=== PATIENT | male | born 1965 | race Caucasian/White ===

== ENCOUNTER 2017-10-18 13:55 | Emergency (ER) | payer BC ==
[2017-10-18 14:05] VITALS: RESP 16; TEMP 98.6
[2017-10-18] MEDS ORDERED: SODIUM CHLORIDE 0.9% 1000ML 1,000 ML IV SCH (14:15)
[2017-10-18 14:19] LABS: BASOPHILS % (AUTO) 2 % (0-3); EOSINOPHILS % (AUTO) 2 % (0-9); HEMATOCRIT 46 % (39-53); MEAN CORPUSCULAR HGB CONC 34.6 gm/dl (32.0-36.0); MEAN CORPUSCULAR VOLUME 87 fL (80-100); NEUTROPHILS % (AUTO) 50.6 % (37-80)
[2017-10-18 14:40] LABS: ALBUMIN 2.9 gm/dl (3.4-5.0); CALCIUM 8.4 mg/dl (8.5-10.1); MAGNESIUM 1.8 mg/dl (1.8-2.4); POTASSIUM 3.2 mMol/L (3.5-5.1)
[2017-10-18] MEDS ORDERED: POTASSIUM CHLORIDE 10 MEQ TER PO ONE (14:54)
[2017-10-18] MEDS ORDERED: POTASSIUM CHLORIDE 10 MEQ TER ONE (15:08)
[2017-10-18 16:50] VITALS: BP 135/79; PULSE 75; O2SAT 100
== END 2017-10-18 16:37 | disposition home or self-care (01) ==
LOC: ED 13:55
DX: R53.1 Weakness (principal); E87.6 Hypokalemia; K52.9 Noninfective gastroenteritis and colitis, unspecified; Z85.038 Personal history of other malignant neoplasm of large intestine
CPT/HCPCS: 71010; 80053; 83735; 84100; 85025; 87040; 87804; 99284

== ENCOUNTER 2017-10-19 16:13 | Emergency (ER) | payer BC ==
[2017-10-19 16:37] VITALS: RESP 16
[2017-10-19] MEDS ORDERED: SODIUM CHLORIDE 0.9% 1000ML 1,000 ML IV SCH (17:30)
[2017-10-19 17:57] LABS: HEMATOCRIT 48 % (39-53); MEAN CORPUSCULAR HGB CONC 34.4 gm/dl (32.0-36.0); MEAN CORPUSCULAR VOLUME 88 fL (80-100)
[2017-10-19 18:03] LABS: ALBUMIN 2.7 gm/dl (3.4-5.0); CALCIUM 8.4 mg/dl (8.5-10.1); THYROID STIMULATING HORMONE 0.894 uIU/ml (0.358-3.740)
[2017-10-19 18:23] LABS: BASOPHILS % (MANUAL) 0 % (0-3); EOSINOPHILS % (MANUAL) 0 % (0-9); LYMPHOCYTES % (MANUAL) 22 % (10-50); NORMAL RBCS PRESENT
[2017-10-19] MEDS ORDERED: SODIUM CHLORIDE 0.9% IV NR ×2 (18:30→18:45)
[2017-10-19] MEDS ORDERED: POTASSIUM CHLORIDE IV NR ×2 (18:30→18:45)
[2017-10-19] MEDS ORDERED: POTASSIUM CHLORIDE 10 MEQ TER PO ONE (18:34)
[2017-10-19] MEDS ORDERED: POTASSIUM CHLORIDE 2 MEQ/ML SOL IV ONE ×2 (18:35→18:40)
[2017-10-19] MEDS ORDERED: POTASSIUM CHLORIDE 10 MEQ TER ONE (18:35)
[2017-10-19 19:10] VITALS: BP 127/78; PULSE 83; TEMP 97.4; O2SAT 100
[2017-10-19] MEDS ORDERED: ONDANSETRON HCL 4 MG/2 ML SOL ONE (20:06)
[2017-10-19] MEDS ORDERED: ONDANSETRON HCL 4 MG/2 ML SOL IV ONE (20:08)
== END 2017-10-19 21:40 | disposition home or self-care (01) ==
LOC: ED 16:13
DX: R19.7 Diarrhea, unspecified (principal); Z85.038 Personal history of other malignant neoplasm of large intestine; Z98.890 Other specified postprocedural states; R53.1 Weakness; E87.6 Hypokalemia
CPT/HCPCS: 80053; 84443; 85007; 85027; 99285; J2405; J3480